=== PATIENT | female | born 1950 | race Caucasian/White ===

== ENCOUNTER → 2016-09-20 | Outpatient (CLI) | payer BC ==
--- NOTE | 2016-09-24 10:47 | MM ---
Reason for exam: screening (asymptomatic). Last mammogram was performed 2 years ago. History: Patient is postmenopausal. Breast lifts of both breasts, 1975. Physical Findings: A clinical breast exam by your physician is recommended on an annual basis and results should be correlated with mammographic findings. MG Screening Mammo w CAD Bilateral CC and MLO view(s) were taken. Prior study comparison: September 28, 2014, bilateral MG screening mammo w CAD. There is no discrete abnormality. No significant changes when compared with prior studies. ASSESSMENT: Negative, BI-RAD 1 RECOMMENDATION: Routine screening mammogram of both breasts in 1 year.
== END | disposition home or self-care (01) ==
LOC: RADMAMWWP 15:31
PROVIDERS: ATTEND Family Medicine
DX: Z12.31 Encounter for screening mammogram for malignant neoplasm of breast (principal)

== ENCOUNTER 2016-10-03 08:52 | Day surgery (SDC) | payer BC ==
[2016-10-01 14:18] VITALS: BMI 31.6
[~2016-10-03 08:52] MED LIST: LACTATED RINGERS 1,000 ML IV SCH; LIDOCAINE 1% 20 ML VIAL (10MG/ML) FOR IV START INTRADERMA PRN
[2016-10-03 09:46] VITALS: RESP 16; TEMP 98.1
[2016-10-03] MEDS ORDERED: MIDAZOLAM 2 MG/2 ML VIAL ONE (09:52)
[2016-10-03] MEDS ORDERED: PROPOFOL 10 MG/ML 20 ML VIAL IV ONE (09:52)
[2016-10-03] MEDS ORDERED: fentaNYL (PF) 50 MCG/ML 2 ML AMP ONE (09:52)
--- NOTE | 2016-10-03 10:16 | P.PCN ---
Date of Procedure: 10/03/16 Preoperative Diagnosis: Postoperative Diagnosis: Procedure(s) Performed: BRIEF HISTORY: Patient is a 66-year-old white female, scheduled for an elective colonoscopy as a part of screening for colorectal neoplasia. She does have family history of colon cancer diagnosed in her mother in her 60s. PROCEDURE PERFORMED: Colonoscopy with snare polypectomy. PREOPERATIVE DIAGNOSIS: Screening for colon cancer/family history of colon cancer. IV sedation per Anesthesia. PROCEDURE: After informed consent was obtained, the patient, was brought into the endoscopy unit. IV sedation was administered by Anesthesia under continuous monitoring. Digital rectal examination was normal. Initially the Olympus CF- 160 flexible video colonoscope was then inserted in the rectum, gradually advanced into the cecum without any difficulty. Careful examination was performed as the scope was gradually being withdrawn. Ileocecal valve and the appendiceal orifice were visualized and appeared normal. Prep was excellent. The base of the cecum there was a 1 cm polyp that was removed by snare polypectomy. Rest of the mucosa of the cecum, ascending colon appeared normal. In the proximal transverse colon there was another 1 cm polyp removed by snare polypectomy. The rest of the , transverse colon, descending colon, sigmoid colon, and rectum appeared normal. on bridging sided diverticulosis seen. Retroflexion was performed in the rectum and no lesions were seen. The patient tolerated the procedure well. IMPRESSION: 1 cm cecal polyp status post polypectomy 1 cm transverse colon polyp status post polypectomy Moderate left-sided diverticulosis RECOMMENDATIONS: Findings of this examination were discussed with the patient as well as his family her family. She was advised to follow with the biopsy results. If the biopsy shows a tubular adenoma, she can have a repeat colonoscopy in 5 years.. Implants: Indications for Procedure: Operative Findings: Description of Procedure:
[2016-10-03 10:28] VITALS: BP 120/67; PULSE 69
== END 2016-10-03 11:10 | disposition home or self-care (01) ==
LOC: ORWHC2ENDO 08:52
PROVIDERS: ATTEND Internal Medicine Gastroenterology
DX: Z12.11 Encounter for screening for malignant neoplasm of colon (principal); D12.3 Benign neoplasm of transverse colon; D12.0 Benign neoplasm of cecum; K57.30 Diverticulosis of large intestine without perforation or abscess without bleeding; Z80.0 Family history of malignant neoplasm of digestive organs; I10 Essential (primary) hypertension; E78.5 Hyperlipidemia, unspecified; Z79.899 Other long term (current) drug therapy
CPT/HCPCS: 88305; 45385; J2250; J3010; J2704

== ENCOUNTER → 2018-10-16 | Outpatient (CLI) | payer MEDICARE, OTHER ==
--- NOTE | 2018-10-21 09:52 | MM ---
Reason for exam: screening (asymptomatic). Last mammogram was performed 2 years and 1 month ago. History: Patient is postmenopausal. Breast lifts of both breasts, 1975. Physical Findings: A clinical breast exam by your physician is recommended on an annual basis and results should be correlated with mammographic findings. MG 3D Screening Mammo W/Cad Bilateral CC and MLO view(s) were taken. XCCL view(s) were taken of the left breast. Prior study comparison: September 20, 2016, bilateral MG screening mammo w CAD. September 28, 2014, bilateral MG screening mammo w CAD. The breast tissue is heterogeneously dense. This may lower the sensitivity of mammography. No significant changes when compared with prior studies. ASSESSMENT: Negative, BI-RAD 1 RECOMMENDATION: Routine screening mammogram of both breasts in 1 year.
== END | disposition home or self-care (01) ==
LOC: RADMAMWWP 15:46
PROVIDERS: ATTEND Family Medicine
DX: Z12.31 Encounter for screening mammogram for malignant neoplasm of breast (principal)
CPT/HCPCS: 77063; 77067

== ENCOUNTER → 2018-10-22 | Outpatient (CLI) | payer MEDICARE, OTHER ==
--- NOTE | 2018-10-23 06:55 | ECHOF ---
Referral Reason:R01.1 cardiac murmur MEASUREMENTS -------- HEIGHT: 170.2 cm WEIGHT: 89.4 kg BP: RVIDd: 3.0 cm (< 3.3) IVSd: 0.9 cm (0.6 - 1.1) LVIDd: 4.7 cm (3.9 - 5.3) LVPWd: 1.0 cm (0.6 - 1.1) IVSs: 1.3 cm LVIDs: 3.4 cm LVPWs: 1.3 cm LA Diam: 3.2 cm (2.7 - 3.8) LAESV Index (A-L): 14.04 ml/m Ao Diam: 3.4 cm (2.0 - 3.7) AV Cusp: 2.0 cm (1.5 - 2.6) LA Diam: 3.7 cm (2.7 - 3.8) MV EXCURSION: 23.254 mm (> 18.000) MV EF SLOPE: 81 mm/s (70 - 150) EPSS: 1.0 cm MV E Matt: 0.71 m/s MV DecT: 353 ms MV A Matt: 1.03 m/s MV E/A Ratio: 0.69 RAP: 5.00 mmHg RVSP: 17.21 mmHg FINDINGS -------- Sinus rhythm. This was a technically adequate study. LV size, wall thickness and systolic function are normal, with an EF greater than 55%. Grossly norm al LV size and systolic function. Unable to comment on regional wall motion. The left ventricular s ize is normal. The right ventricle is normal in size. The left atrial size is normal. The right atrial size is normal. There is mild aortic valve sclerosis. There is no evidence of aortic regurgitation. Mild mitral annular calcification present. Mild mitral regurgitation is present. Mild tricuspid regurgitation present. There is no evidence of pulmonary hypertension. The right v entricular systolic pressure, as measured by Doppler, is 17.21mmHg. There is no pulmonic regurgitation present. The aortic root size is normal. Echo free space represents a pericardial fat pad. CONCLUSIONS -------- 1. Sinus rhythm. 2. This was a technically adequate study. 3. LV size, wall thickness and systolic function are normal, with an EF greater than 55%. 4. Grossly normal LV size and systolic function. Unable to comment on regional wall motion. 5. The left ventricular size is normal. 6. The right ventricle is normal in size. 7. The left atrial size is normal. 8. The right atrial size is normal. 9. There is mild aortic valve sclerosis. 10. Mild mitral annular calcification present. 11. Mild mitral regurgitation is present. 12. Mild tricuspid regurgitation present. 13. There is no evidence of pulmonary hypertension. 14. The right ventricular systolic pressure, as measured by Doppler, is 17.21mmHg. 15. There is no pulmonic regurgitation present. 16. The aortic root size is normal. 17. Echo free space represents a pericardial fat pad. TRANSVERSE ABDOMINAL MUSCLE SURGEON: Pamela Silverio RDCS
== END | disposition home or self-care (01) ==
LOC: RADECHMAIN 16:05
PROVIDERS: ATTEND Family Medicine
DX: I08.1 Rheumatic disorders of both mitral and tricuspid valves (principal)
CPT/HCPCS: 93306

== ENCOUNTER 2019-03-26 14:43 | Inpatient (IN) | payer MEDICARE, OTHER ==
[2019-03-26] MEDS ORDERED: SODIUM CHLORIDE 0.9% 500 ML 500 ML IV STA (15:16)
--- NOTE | 2019-03-26 15:23 | ED ---
General Adult HPI - General Chief complaint: GI Bleed Stated complaint: Rectal Bleeding Time Seen by Provider: 03/26/19 14:45 Source: patient, RN notes reviewed, old records reviewed Mode of arrival: ambulatory Limitations: no limitations - History of Present Illness Initial comments: This is a 68-year-old female who presents emergency Department complaining that she had rectal bleeding on Saturday night and Saturday morning. Patient states it subsided on Saturday. Patient states she took some sort of laxative on Saturday night. Patient states she hasn't had any bleeding yesterday or today but she saw her primary medical care doctor Dr. Sanchez . Patient denies any diarrhea. Patient denies any fever chills per patient denies any chest pain difficult breathing shortest breath. Patient denies lightheadedness or dizziness. Patient states she has a general feeling of being weak he told to come to the emergency department. Patient states she has diffuse abdominal pain but is much better than it was yesterday. - Related Data Home Medications Medication Instructions Recorded Confirmed Albuterol Inhaler [Ventolin Hfa 1 - 2 puff INHALATION RT-QID PRN 10/01/16 03/26/19 Inhaler] Aspirin 81 mg PO HS 10/01/16 03/26/19 Benazepril [Lotensin] 10 mg PO DAILY 10/01/16 03/26/19 Multivitamins, Thera [Multivitamin 1 tab PO DAILY 08/12/18 03/26/19 (formulary)] L.acidoph,Paracasei, B.lactis 1 cap PO HS 03/26/19 03/26/19 [Probiotic] Naproxen Sodium [Aleve] 440 mg PO Q12HR PRN 03/26/19 03/26/19 Simvastatin 40 mg PO HS 03/26/19 03/26/19 diphenhydrAMINE HCL 12.5 mg PO HS PRN 03/26/19 03/26/19 Allergies Allergy/AdvReac Type Severity Reaction Status Date / Time No Known Allergies Allergy Verified 03/26/19 16:34 Review of Systems ROS Statement: Those systems with pertinent positive or pertinent negative responses have been documented in the HPI. ROS Other: All systems not noted in ROS Statement are negative. Past Medical History Past Medical History: Hyperlipidemia, Hypertension History of Any Multi-Drug Resistant Organisms: None Reported Past Surgical History: Orthopedic Surgery Additional Past Surgical History / Comment(s): L knee Past Psychological History: No Psychological Hx Reported Smoking Status: Former smoker Past Alcohol Use History: Daily, Heavy Past Drug Use History: None Reported General Exam - General Exam Comments Initial Comments: GENERAL: Patient is well-developed and well-nourished. Patient is nontoxic and well- hydrated and is in mild distress. ENT: Neck is soft and supple. No significant lymphadenopathy is noted. Oropharynx is clear. Moist mucous membranes. Neck has full range of motion without eliciting any pain. EYES: The sclera were anicteric and conjunctiva were pink and moist. Extraocular movements were intact and pupils were equal round and reactive to light. Eyelids were unremarkable. PULMONARY: Unlabored respirations. Good breath sounds bilaterally. No audible rales rhonchi or wheezing was noted. CARDIOVASCULAR: There is a regular rate and rhythm without any murmurs gallops or rubs. ABDOMEN: Soft and nontender with normal bowel sounds. SKIN: Skin is clear with no lesions or rashes and otherwise unremarkable. NEUROLOGIC: Patient is alert and oriented x3. Cranial nerves II through XII are grossly intact. Motor and sensory are also intact. Normal speech, volume and content. Symmetrical smile. MUSCULOSKELETAL: Normal extremities with adequate strength and full range of motion. No lower extremity swelling or edema. No calf tenderness. LYMPHATICS: No significant lymphadenopathy is noted PSYCHIATRIC: Normal psychiatric evaluation. Limitations: no limitations Course Vital Signs 03/26/19 14:46 Temperature 97.6 F Pulse Rate 102 H Respiratory 18 Rate Blood Pressure 144/85 O2 Sat by Pulse 96 Oximetry Medical Decision Making - Medical Decision Making I spoke with Dr. Hector and he agreed to admit the patient admitted the patient I consult to Dr. Gama. - Lab Data Result diagrams: 03/26/19 15:32 03/26/19 15:32 Lab Results 03/26/19 03/26/19 03/26/19 Range/Units 15:32 15:32 15:32 WBC 11.4 H (3.8-10.6) k/uL RBC 4.47 (3.80-5.40) m/uL Hgb 13.8 (11.4-16.0) gm/dL Hct 40.6 (34.0-46.0) % MCV 90.7 (80.0-100.0) fL MCH 30.8 (25.0-35.0) pg MCHC 33.9 (31.0-37.0) g/dL RDW 12.5 (11.5-15.5) % Plt Count 211 (150-450) k/uL Neutrophils % 80 % Lymphocytes % 10 % Monocytes % 6 % Eosinophils % 1 % Basophils % 0 % Neutrophils # 9.1 H (1.3-7.7) k/uL Lymphocytes # 1.2 (1.0-4.8) k/uL Monocytes # 0.7 (0-1.0) k/uL Eosinophils # 0.1 (0-0.7) k/uL Basophils # 0.0 (0-0.2) k/uL PT 9.8 (9.0-12.0) sec INR 0.9 (<1.2) APTT 22.9 (22.0-30.0) sec Sodium 138 (137-145) mmol/L Potassium 3.8 (3.5-5.1) mmol/L Chloride 102 (98-107) mmol/L Carbon Dioxide 25 (22-30) mmol/L Anion Gap 11 mmol/L BUN 17 (7-17) mg/dL Creatinine 0.88 (0.52-1.04) mg/dL Est GFR (CKD-EPI)AfAm 80 (>60 ml/min/1.73 sqM) Est GFR (CKD-EPI)NonAf 69 (>60 ml/min/1.73 sqM) Glucose 138 H (74-99) mg/dL Calcium 8.9 (8.4-10.2) mg/dL Magnesium 2.3 (1.6-2.3) mg/dL Total Bilirubin 0.8 (0.2-1.3) mg/dL AST 41 H (14-36) U/L ALT 49 H (4-34) U/L Alkaline Phosphatase 131 H (38-126) U/L Troponin I (0.000-0.034) ng/mL Total Protein 6.8 (6.3-8.2) g/dL Albumin 4.1 (3.5-5.0) g/dL Blood Type Blood Type Confirm Blood Type Recheck Bld Type Recheck Status Antibody Screen Spec Expiration Date 03/26/19 03/26/19 03/26/19 Range/Units 15:32 15:32 16:10 WBC (3.8-10.6) k/uL RBC (3.80-5.40) m/uL Hgb (11.4-16.0) gm/dL Hct (34.0-46.0) % MCV (80.0-100.0) fL MCH (25.0-35.0) pg MCHC (31.0-37.0) g/dL RDW (11.5-15.5) % Plt Count (150-450) k/uL Neutrophils % % Lymphocytes % % Monocytes % % Eosinophils % % Basophils % % Neutrophils # (1.3-7.7) k/uL Lymphocytes # (1.0-4.8) k/uL Monocytes # (0-1.0) k/uL Eosinophils # (0-0.7) k/uL Basophils # (0-0.2) k/uL PT (9.0-12.0) sec INR (<1.2) APTT (22.0-30.0) sec Sodium (137-145) mmol/L Potassium (3.5-5.1) mmol/L Chloride (98-107) mmol/L Carbon Dioxide (22-30) mmol/L Anion Gap mmol/L BUN (7-17) mg/dL Creatinine (0.52-1.04) mg/dL Est GFR (CKD-EPI)AfAm (>60 ml/min/1.73 sqM) Est GFR (CKD-EPI)NonAf (>60 ml/min/1.73 sqM) Glucose (74-99) mg/dL Calcium (8.4-10.2) mg/dL Magnesium (1.6-2.3) mg/dL Total Bilirubin (0.2-1.3) mg/dL AST (14-36) U/L ALT (4-34) U/L Alkaline Phosphatase (38-126) U/L Troponin I <0.012 (0.000-0.034) ng/mL Total Protein (6.3-8.2) g/dL Albumin (3.5-5.0) g/dL Blood Type A Positive Blood Type Confirm A Positive Blood Type Recheck No Previous Record Bld Type Recheck Status CABO Indicated Antibody Screen NEGATIVE Spec Expiration Date 03/29/2019 - 2331 Disposition Clinical Impression: GI bleed Disposition: ADMITTED IP TO THIS HOSP Referrals: Shahid Sanchez MD [Primary Care Provider] - 1-2 days Time of Disposition: 17:08
[2019-03-26 15:47] LABS: Basophils % (A) 0 %; Eosinophils # (A) 0.1 k/uL (0-0.7); Eosinophils % (A) 1 %; HCT 40.6 % (34.0-46.0); HGB 13.8 gm/dL (11.4-16.0); Lymphocytes # (A) 1.2 k/uL (1.0-4.8); Lymphocytes % (A) 10 %; MCH 30.8 pg (25.0-35.0); MCHC 33.9 g/dL (31.0-37.0); MCV 90.7 fL (80.0-100.0); Monocytes # (A) 0.7 k/uL (0-1.0); Monocytes % (A) 6 %; Neutrophils # (A) 9.1 k/uL (1.3-7.7); Neutrophils % (A) 80 %; Platelet Count 211 k/uL (150-450); RBC 4.47 m/uL (3.80-5.40); RDW 12.5 % (11.5-15.5); WBC 11.4 k/uL (3.8-10.6)
[2019-03-26 15:53] LABS: Albumin 4.1 g/dL (3.5-5.0); Calcium 8.9 mg/dL (8.4-10.2); Magnesium 2.3 mg/dL (1.6-2.3); Potassium 3.8 mmol/L (3.5-5.1); Total Bilirubin 0.8 mg/dL (0.2-1.3); Total Protein 6.8 g/dL (6.3-8.2)
[2019-03-26 15:58] LABS: INR 0.9 (<1.2); Partial Thromboplastin Time 22.9 sec (22.0-30.0); Prothrombin Time 9.8 sec (9.0-12.0)
[2019-03-26] MEDS: SODIUM CHLORIDE 0.9% 1,000 ML IV ONE ×2 (18:24→20:34)
[2019-03-27 03:23] LABS: Basophils % (A) 0 %; Eosinophils # (A) 0.1 k/uL (0-0.7); Eosinophils % (A) 1 %; HCT 36.3 % (34.0-46.0); HGB 12.3 gm/dL (11.4-16.0); Lymphocytes # (A) 1.1 k/uL (1.0-4.8); Lymphocytes % (A) 12 %; MCH 30.9 pg (25.0-35.0); MCHC 33.8 g/dL (31.0-37.0); MCV 91.5 fL (80.0-100.0); Mean Platelet Volume 8.3; Monocytes # (A) 0.5 k/uL (0-1.0); Monocytes % (A) 6 %; Neutrophils # (A) 7.2 k/uL (1.3-7.7); Neutrophils % (A) 77 %; Platelet Count 190 k/uL (150-450); RBC 3.96 m/uL (3.80-5.40); RDW 12.4 % (11.5-15.5); WBC 9.3 k/uL (3.8-10.6)
[2019-03-27 09:13] LABS: Basophils % (A) 0 %; Eosinophils # (A) 0.1 k/uL (0-0.7); Eosinophils % (A) 1 %; HCT 36.7 % (34.0-46.0); HGB 12.1 gm/dL (11.4-16.0); Lymphocytes % (A) 13 %; MCH 30.4 pg (25.0-35.0); Mean Platelet Volume 8.1; Monocytes # (A) 0.5 k/uL (0-1.0); Monocytes % (A) 6 %; Neutrophils # (A) 6.1 k/uL (1.3-7.7); Neutrophils % (A) 77 %; Platelet Count 198 k/uL (150-450); RBC 3.99 m/uL (3.80-5.40); RDW 12.4 % (11.5-15.5)
[2019-03-27 15:48] LABS: Basophils # (A) 0.1 k/uL (0-0.2); Basophils % (A) 1 %; Eosinophils # (A) 0.1 k/uL (0-0.7); Eosinophils % (A) 1 %; HCT 37.7 % (34.0-46.0); HGB 12.1 gm/dL (11.4-16.0); Lymphocytes # (A) 1.1 k/uL (1.0-4.8); Lymphocytes % (A) 14 %; MCH 29.8 pg (25.0-35.0); MCHC 32.1 g/dL (31.0-37.0); MCV 92.8 fL (80.0-100.0); Mean Platelet Volume 8.1; Monocytes # (A) 0.5 k/uL (0-1.0); Monocytes % (A) 6 %; Neutrophils # (A) 5.9 k/uL (1.3-7.7); Neutrophils % (A) 74 %; Platelet Count 209 k/uL (150-450); RBC 4.07 m/uL (3.80-5.40); RDW 12.4 % (11.5-15.5); WBC 7.9 k/uL (3.8-10.6)
[2019-03-27] MEDS ORDERED: PEG 3350-NA SULF,BICARB,CL/KCL 4,000 ML BOTTLE PO ONE (16:00)
--- NOTE | 2019-03-27 21:13 | HP ---
HISTORY AND PHYSICAL CHIEF COMPLAINT: Bright red rectal bleeding. HISTORY OF PRESENT ILLNESS: This is another admission for this 68-year-old white female. She came to the office stating that that morning she had been passing a large amount of bright red blood with some clots. There was no melena. She had some mild lower abdominal discomfort but no nausea, vomiting, hematemesis, etc. She does have a history of diverticulosis, apparently. She also has a history of hypertension, diabetes and COPD. REVIEW OF SYSTEMS: She has had no syncope, neurologic problems, change in the vision or the hearing, chest pain, shortness of breath, cough, hemoptysis, heart disease, angina, infarctions, palpitations, orthopnea, PND, syncope, jaundice, renal failure, dysuria, frequency, etc. She states that her urine looked bloody as well. She had no flank pain. Past medical history, family history, and personal and social histories reveal that she is NOT ALLERGIC TO ANY MEDICATION. She is on benazepril 10 mg once a day, simvastatin 80 mg once a day. She used to smoke, but she has quit. She drinks alcohol only occasionally. PHYSICAL EXAMINATION: Blood pressure 110/70. Pulse is 88, respirations 16. She is afebrile. In general she appears to be well developed, well nourished, in no acute distress. Skin color is normal. Skin is warm and dry. Lymph nodes are not enlarged. Head, ears, eyes, nose, mouth and throat are normal and neck veins are not distended. Thyroid is not enlarged. Chest is clear. Cardiac exam is normal sinus rhythm. The abdomen is slightly protuberant, soft and slightly tender in both lower quadrants. There are no masses or visceromegaly. Bowel sounds are present. Extremities are normal. Neurologically she is intact. In the office she refused any other studies than hemoglobin A1c, which was 5.9. Given her history, it was decided to be safest to send her to the emergency room for further evaluation and likely admission. IMPRESSION: 1. Lower abdominal pain with bright red rectal bleeding. 2. Chronic obstructive pulmonary disease. 3. Type 2 [id number] diabetes mellitus. PLAN: 1. Bed rest. 2. IV fluids. 3. Monitor blood loss and vital signs. 4. GI consult for lower GI endoscopy. MMODL / IJN: [id number] /
--- NOTE | 2019-03-27 21:13 | PN ---
PROGRESS NOTE DATE OF SERVICE: 03/27/2019. CHIEF COMPLAINT: Lower GI bleed. HISTORY OF PRESENT ILLNESS: This lady has been fairly stable and has not had further bleeding. Her hemoglobin is down 1 g. She has had no nausea, vomiting, chills, fever, etc. She has not been seen by GI yet. PHYSICAL EXAMINATION: Color is good. VITAL SIGNS: Normal. Chest is clear and cardiac exam is normal. Abdomen is soft and she is mildly tender in the lower half of the stomach and there are no masses. Bowel sounds are present. Extremities normal. IMPRESSION: 1. Lower abdominal pain. 2. Bright red rectal bleeding. 3. History of diverticulosis. 4. Chronic obstructive pulmonary disease. 5. Diabetes. PLAN: Continue to monitor and await GI evaluation. MMODL / IJN: [id number] /
--- NOTE | 2019-03-27 22:34 | CONS ---
CONSULTATION DATE OF DICTATION: 03/27/2019 REASON FOR CONSULTATION: Acute lower GI bleed. HISTORY OF PRESENT ILLNESS: The patient is a 68-year-old pleasant white female who came into the emergency room complaining of rectal bleeding that started 2 days ago. She states that on Saturday night she had an urge to have a bowel movement. She took some probiotics and subsequently she started noticing some blood in the stool. On Saturday and Saturday she had at least 4 or 5 episodes of bright red blood per rectum. She went to see her PCP yesterday and she was sent to the emergency room and subsequently admitted to the hospital for further evaluation. Since being here, she has not had any episodes of bleeding. Her last bloody bowel movement was on Saturday at 5 p.m. She reports no abdominal pain, reports no nausea, vomiting. She never had these symptoms in the past. She did have a colonoscopy in April of 2016 that showed colon polyps and diverticulosis. She denies any fever, chills, night sweats. PAST MEDICAL HISTORY: Her past medical history is significant for hypertension, hyperlipidemia. PAST SURGICAL HISTORY: Left knee surgery. MEDICATIONS: Medications at home include Aleve, simvastatin, diphenhydramine, probiotics, Lotensin, aspirin and albuterol. SOCIAL HISTORY: Former smoker. Heavy alcohol use. FAMILY HISTORY: Unremarkable. REVIEW OF SYSTEMS: CARDIOPULMONARY: No chest pain or shortness of breath. GENITOURINARY: No dysuria or hematuria. MUSCULOSKELETAL: Unremarkable. SKIN: Unremarkable. ENDOCRINE: Unremarkable. PSYCHIATRIC: Unremarkable. NEUROLOGY: Unremarkable. ENT/VISION: Unremarkable. CONSTITUTIONAL: No recent weight loss. No fever, chills, night sweats. PHYSICAL EXAMINATION: Appears comfortable. No apparent distress. Vital signs are stable. Blood pressure 149/79, pulse rate 76, temperature 97.9. HEENT examination unremarkable. Conjunctivae pink. Sclerae anicteric. Oral cavity no lesions. NECK: No JVD or lymph node enlargement. CHEST: Clear to auscultation. HEART: Regular rate and rhythm. ABDOMEN: Soft. Bowel sounds are positive. No organomegaly. EXTREMITIES: No pedal edema. SKIN: No rashes. NEUROLOGIC: Alert and oriented x3. No focal deficits. LABS: Labs done today show WBC 7.9, hemoglobin 12.1, platelets normal. Basic metabolic panel is within normal limits. AST and ALT are 41 and 49, respectively. Repeat hemoglobin this afternoon is 12.1. IMPRESSION: Acute lower gastrointestinal bleed. Patient had multiple episodes of bright red blood per rectum for the last few days' duration. Hemoglobin stable at 12.1 g/dL. Past colonoscopy was 3 years ago and was noted to have colon polyps. We are most likely dealing with a diverticular bleed. Other etiologies cannot be excluded. Patient hemodynamically stable. Normal hemoglobin. RECOMMENDATIONS: 1. Clear liquid diet. 2. Will proceed with a colonoscopy tomorrow. Discussed with her risks, benefits and complications of the procedure, and she is agreeable to it. Thank you for this consultation. MMODL / IJN: [id number] /
[2019-03-27] MEDS: LISINOPRIL 10 MG TAB PO SCH (22:52)
[2019-03-28] MEDS ORDERED: IV FLUID CONTINUATION 1,000 ML IV ONE (08:04)
--- NOTE | 2019-03-28 08:37 | P.PCN ---
Date of Procedure: 03/28/19 Procedure(s) Performed: BRIEF HISTORY: Patient is a 68-year-old pleasant white female admitted hospital with acute lower GI bleed. She presented with severe lower abdominal pain followed by multiple episodes of bright the back rectum for the last 2 days' duration. Hemoglobin 12 g/dL. She is scheduled for colonoscopy to evaluate further. PROCEDURE PERFORMED: Colonoscopy with biopsy. PREOPERATIVE DIAGNOSIS: Lower abdominal pain/acute lower GI bleed. IV sedation per Anesthesia. PROCEDURE: After informed consent was obtained, the patient, was brought into the endoscopy unit. IV sedation was administered by Anesthesia under continuous monitoring. Digital rectal examination was normal. Initially the Olympus CF-160 flexible video colonoscope was then inserted in the rectum, gradually advanced into the cecum without any difficulty. Careful examination was performed as the scope was gradually being withdrawn. Ileocecal valve and the appendiceal orifice were visualized and appeared normal. Prep was excellent. Mucosa of the cecum, ascending colon, transverse colon, appeared normal. There was severe segmental colitis involving the proximal sigmoid colon and the distal descending colons descending from 30-50 cm from the anal verge with mucosal erythema, friability, severe congestion with bluish discoloration consistent with ischemic colitis and biopsies were done from this area. The rest of the sigmoid colon, and rectum appeared normal. Retroflexion was performed in the rectum and no lesions were seen. The patient tolerated the procedure well. IMPRESSION: 1.Severe segmental colitis involving the proximal sigmoid and distal descending colon at 70 from 30-50 cm from the anal verge with mucosal erythema friability, congested appearing mucosa and some bluish discoloration consistent with severe ischemic colitis 2.Scattered sigmoid diverticulosis 3.No evidence of colorectal neoplasia RECOMMENDATIONS: Findings of this examination were discussed with the patient. At this time because of the severe ischemic colitis will monitor her closely in the hospital for 2 more days. Keep her on clear liquid diet for today and tomorrow if she is feeling better and advance to a soft diet. Monitor CBC on a daily basis..
[2019-03-28] MEDS ORDERED: PROPOFOL 10 MG/ML 20 ML VIAL IV ONE (08:40)
[2019-03-28] MEDS: LISINOPRIL 10 MG TAB PO SCH (09:38)
--- NOTE | 2019-03-28 16:14 | PN ---
PROGRESS NOTE CHIEF COMPLAINT: Lower GI bleed. HISTORY OF PRESENT ILLNESS: This lady is doing well and feeling well. She is still having some mild lower abdominal discomfort but no bleeding. She is found to have extensive colitis at her colonoscopy this morning and GI suggests that it is ischemic. They wanted to keep her in the hospital to monitor her for another day or two. PHYSICAL EXAMINATION: Color is good and chest is clear. Cardiac exam is normal. The abdomen is soft and nontender. IMPRESSION: Ischemic colitis and lower GI bleed. PLAN: GI wants to keep her in the hospital for several more days. MMODL / IJN: [id number] /
[2019-03-29] MEDS: LISINOPRIL 10 MG TAB PO SCH (08:30)
--- NOTE | 2019-03-29 09:06 | PN ---
PROGRESS NOTE DATE OF DICTATION: March 29, 2019 Patient is a 68-year-old pleasant white female admitted to hospital with acute onset of lower abdominal pain followed by bloody rectal bleeding of 2 days duration. She had a colonoscopy done yesterday that revealed severe segmental colitis involving the descending colon and sigmoid colon consistent with severe ischemic colitis. Following the procedure, the patient was kept on a clear liquid diet and today she is feeling better. She still has some abdominal pain, but has improved significantly. No further episodes of bleeding. PHYSICAL EXAMINATION: Blood pressure 142/72, pulse rate 56, temperature 97.9. HEENT examination unremarkable. Conjunctivae pink. Sclerae anicteric. Oral cavity no lesions. NECK: No JVD or lymph node enlargement. CHEST: Clear to auscultation. HEART: Regular rate and rhythm. ABDOMEN: Soft. Bowel sounds are positive. There is mild tenderness in the left upper quadrant and left lower quadrant area. EXTREMITIES: No pedal edema. SKIN no rashes. NEUROLOGIC: Alert and oriented x3. No focal deficits. LABS: From today are still pending. IMPRESSION: Acute severe segmental colitis involving the proximal sigmoid and distal descending colon consistent with acute ischemic colitis. Colonoscopy done yesterday shows severe colitis. The patient is gradually improving but still has some abdominal pain. On clear liquid diet, tolerating well. RECOMMENDATIONS: 1. Await labs from today. 2. Advance to full liquid diet. 3. If she continues to improve, she can be started on a low-fiber diet tomorrow and discharged home tomorrow with outpatient followup in 2 weeks. Thank you for this consultation. MMODL / IJN: [id number] /
[2019-03-29 09:56] LABS: Basophils # (A) 0.1 k/uL (0-0.2); Basophils % (A) 1 %; Eosinophils # (A) 0.1 k/uL (0-0.7); Eosinophils % (A) 2 %; HCT 37.4 % (34.0-46.0); HGB 12.5 gm/dL (11.4-16.0); Lymphocytes # (A) 0.9 k/uL (1.0-4.8); Lymphocytes % (A) 16 %; MCH 30.6 pg (25.0-35.0); MCHC 33.4 g/dL (31.0-37.0); MCV 91.8 fL (80.0-100.0); Mean Platelet Volume 8.1; Monocytes # (A) 0.4 k/uL (0-1.0); Monocytes % (A) 6 %; Neutrophils # (A) 4.1 k/uL (1.3-7.7); Neutrophils % (A) 72 %; Platelet Count 253 k/uL (150-450); RBC 4.07 m/uL (3.80-5.40); RDW 12.4 % (11.5-15.5); WBC 5.6 k/uL (3.8-10.6)
--- NOTE | 2019-03-29 13:36 | PN ---
PROGRESS NOTE CHIEF COMPLAINT: Lower gastrointestinal bleed. HISTORY OF PRESENT ILLNESS: This lady is doing well. She is comfortable, not having any bleeding, pain, etc. Gastroenterology is holding her in for another day. PHYSICAL EXAMINATION: Chest is clear and cardiac exam is normal. Abdomen is soft, nontender. IMPRESSION: Lower gastrointestinal bleed secondary to ischemic colitis. PLAN: Probably home tomorrow. MMODL / IJN: [id number] /
[2019-03-29 20:53] VITALS: RESP 16
[2019-03-30] MEDS: LISINOPRIL 10 MG TAB PO SCH (08:29)
--- NOTE | 2019-03-30 12:14 | DS ---
DISCHARGE SUMMARY CHIEF COMPLAINT: Bright red rectal bleeding. HISTORY OF PRESENT ILLNESS AND PHYSICAL EXAM: Details of this lady's history and physical can be found in the initial workup. LABORATORY STUDIES: While she was in a hospital she had laboratory studies, details of which can be found in the laboratory section of her chart. COURSE IN THE HOSPITAL: After admission, she was placed on bedrest, started on intravenous fluids and seen by Gastroenterology. She was subsequently taken to the operating room after her bleeding had stopped and she was found to have extensive ischemic colitis from the transverse colon down to the rectum in patchy distribution. She had no further bleeding. She is doing well. She had no pain, fever, chills, etc. and it was felt that she could go home and she will go home on her usual activity and diet and be seen in the office in several days. FINAL DIAGNOSES: 1. Bright red rectal bleeding. 2. Ischemic hemorrhagic colitis. OPERATIONS: Endoscopy. CONSULTATIONS: Gastroenterology. She is improved. MMODL / IJN: [id number] /
[2019-03-30 15:07] VITALS: BP 120/68; PULSE 74; TEMP 98.5
== END 2019-03-30 12:59 | disposition home or self-care (01) | DRG 393 ==
LOC: EC 14:43 → 6NMEDSUR 17:11 → OBSVTOIN 03-28 09:05
PROVIDERS: ADMIT Family Medicine; ATTEND Family Medicine
PROC: 0DBM8ZX Excision of Descending Colon, Via Natural or Artificial Opening Endoscopic, Diagnostic (ICD-10-PCS; principal; 2019-03-28 08:15)
PROC: 0DBN8ZX Excision of Sigmoid Colon, Via Natural or Artificial Opening Endoscopic, Diagnostic (ICD-10-PCS; principal; 2019-03-28 08:15)
DX: K55.031 Focal (segmental) acute (reversible) ischemia of large intestine (principal); K57.31 Diverticulosis of large intestine without perforation or abscess with bleeding; J44.9 Chronic obstructive pulmonary disease, unspecified; E11.9 Type 2 diabetes mellitus without complications; E78.5 Hyperlipidemia, unspecified; I10 Essential (primary) hypertension; Z86.010 Personal history of colon polyps; Z87.891 Personal history of nicotine dependence; Z79.84 Long term (current) use of oral hypoglycemic drugs; Z79.82 Long term (current) use of aspirin
CPT/HCPCS: 36415; 45380; 80053; 83735; 84484; 85025; 85610; 85730; 86850; 86900; 86901; 88305; 96360; 96361; 99284

== ENCOUNTER → 2022-01-19 | Outpatient (CLI) | payer MEDICARE ==
--- NOTE | 2022-01-22 08:53 | MM ---
Reason for Exam: Screening (asymptomatic). Last mammogram was performed 3 year(s) and 4 month(s) ago. Patient History: Menarche at age 13. First Full-Term at age 19. Postmenopausal. Risk Values: Lennie 5 year model risk: 1.4%. NCI Lifetime model risk: 4.2%. Prior Study Comparison: 09/28/2014 Bilateral Screening Mammogram, [facility]. 09/20/2016 Bilateral Screening Mammogram, [facility]. 10/16/2018 Bilateral Screening Mammogram, [facility]. Tissue Density: The breast tissue is heterogeneously dense. This may lower the sensitivity of mammography. Findings: Analyzed By CAD. Scattered benign-appearing calcifications. There is no suspicious group of microcalcifications or new suspicious mass in either breast. Overall Assessment: Benign, BI-RAD 2 Management: Screening Mammogram of both breasts in 1 year. A clinical breast exam by your physician is recommended on an annual basis and results should be correlated with mammographic findings. [facility] will attempt to contact patient to return for supplemental views and ultrasound if indicated. Electronically signed and approved by: Vivek Najera DO
== END | disposition home or self-care (01) ==
LOC: RADMAMWWP 16:20
PROVIDERS: ATTEND Family Medicine
DX: Z12.31 Encounter for screening mammogram for malignant neoplasm of breast (principal); Z78.0 Asymptomatic menopausal state
CPT/HCPCS: 77063; 77067

== ENCOUNTER → 2023-02-20 | Outpatient (CLI) | payer MEDICARE ==
--- NOTE | 2023-02-22 15:23 | MM ---
Reason for Exam: Screening (asymptomatic). Last mammogram was performed 1 year(s) and 1 month(s) ago. Patient History: Menarche at age 13. First Full-Term at age 19. Postmenopausal. Risk Values: Lennie 5 year model risk: 1.4%. NCI Lifetime model risk: 4.0%. Prior Study Comparison: 09/20/2016 Bilateral Screening Mammogram, [facility]. 10/16/2018 Bilateral Screening Mammogram, [facility]. 01/19/2022 Bilateral MG 3D screening mammo w/cad, [facility]. Tissue Density: The breast tissue is extremely dense which could obscure a lesion on mammography. Findings: Analyzed By CAD. Pattern appears symmetrical and stable. Scattered benign calcifications are present. No significant interval changes are evident No suspicious groups of microcalcifications, spiculated or lobular masses, architectural distortion or other secondary signs of malignancy are mammographically apparent. Overall Assessment: Benign, BI-RAD 2 Management: Screening Mammogram of both breasts in 1 year. A negative mammogram report should not preclude additional follow up of suspicious palpable abnormalities. Patient should continue monthly self breast exam. A clinical breast exam by your physician is recommended on an annual basis and results should be correlated with mammographic findings. Electronically signed and approved by: Albert Vaughn D.O. Radiologis
== END | disposition home or self-care (01) ==
LOC: RADMAMWWP 12:50
PROVIDERS: ATTEND Family Medicine
DX: Z12.31 Encounter for screening mammogram for malignant neoplasm of breast (principal); Z78.0 Asymptomatic menopausal state
CPT/HCPCS: 77063; 77067

== ENCOUNTER 2023-05-15 08:49 | Day surgery (SDC) | payer MEDICARE ==
[~2023-05-15 08:49] MED LIST changes: -LACTATED RINGERS 1,000 ML IV SCH; +LIDOCAINE 1% (10MG/ML) FOR IV START INTRADERMA PRN; -LIDOCAINE 1% 20 ML VIAL (10MG/ML) FOR IV START INTRADERMA PRN; +MIDAZOLAM 2 MG/2 ML VIAL IV PRN
[2023-05-15] MEDS: LACTATED RINGERS 1,000 ML IV SCH (09:12)
[2023-05-15] MEDS: DEXAMETHASONE SOD PHOSPHATE 4 MG/ML 1 ML VIAL IV ONE (09:24)
[2023-05-15] MEDS: FAMOTIDINE 20 MG/2 ML VIAL IV PRN (09:24)
[2023-05-15] MEDS: ONDANSETRON 4 MG/2 ML VIAL IVP ONE (09:24)
[2023-05-15 09:32] LABS: Glucose,Whole Blood 139 mg/dL (70-110)
[2023-05-15] MEDS ORDERED: SUGAMMADEX SODIUM 200 MG/2 ML SDV IV ONE (10:10)
[2023-05-15] MEDS ORDERED: fentaNYL (PF) 50 MCG/ML 2 ML AMP ONE (10:10)
[2023-05-15] MEDS ORDERED: MIDAZOLAM 2 MG/2 ML VIAL ONE (10:10)
[2023-05-15] MEDS ORDERED: PROPOFOL 10 MG/ML 20 ML VIAL IV ONE (10:10)
[2023-05-15] MEDS ORDERED: GLYCOPYRROLATE 0.2 MG/ML 2 ML VIAL ONE (10:10)
[2023-05-15] MEDS ORDERED: ROCURONIUM 10 MG/ML (5 ML VIAL) IV ONE (10:10)
[2023-05-15] MEDS ORDERED: LABETALOL 5 MG/ML VIAL MDV ONE (10:10)
[2023-05-15] MEDS ORDERED: LIDOCAINE 1% INJ 10MG/ML (20 ML MDV) ONE (10:10)
[2023-05-15] MEDS ORDERED: DEXAMETHASONE SOD PHOSPHATE 10 MG/ML 1 ML VIAL ONE (10:10)
[2023-05-15] MEDS ORDERED: SUCCINYLCHOLINE CHLORIDE 200 MG/10 ML VIAL IV ONE (10:10)
[2023-05-15] MEDS ORDERED: NEOSTIGMINE 1 MG/ML 10 ML VIAL ONE (10:10)
[2023-05-15] MEDS: SILVER NITRATE APPLICATOR 1 EACH STICK..EA. TOPICAL ONE (10:47)
[2023-05-15] MEDS: LACTATED RINGERS 1,000 ML IV ONE (10:50)
--- NOTE | 2023-05-15 10:54 | P.OP ---
Date of Procedure: 05/15/23 Preoperative Diagnosis: base of tongue cyst Right oropharynx lesion Postoperative Diagnosis: Same Procedure(s) Performed: Microlaryngoscopy with excision base of tongue lesion Direct pharyngoscopy with excision right oropharynx lesion Anesthesia: ROCÍOA Surgeon: Gavin Peña Estimated Blood Loss (ml): 3 Pathology: other (Base of tongue and oropharynx lesions) Condition: stable Disposition: PACU Indications for Procedure: This 72-year-old white female whose had globus type sensation. She was noted to have a base of tongue cystic lesion as well as incidentally a right oropharynx lesion Operative Findings: Right oropharynx lesion which appeared cystic at the superior aspect of the right tonsil approximate 4 mm with white submucosally hue-had white caseous debris within this removed grossly entirely, small approximate 5 mm cystic lesion smooth rounded midline base of tongue Description of Procedure: The patient was brought in the operative suite and placed in a supine position. Patient underwent induction of general anesthesia with oral endotracheal intubation without difficulty. The patient was prepped and draped in usual aseptic fashion. Gum guard was placed and direct laryngoscopy was performed with systematic evaluation of the base of tongue vallecula both piriform sinuses post cricoid area and endolarynx. With the base of tongue in good visualization the laryngoscope was placed in suspension and the Zeiss microscope was brought into position for visualization. The cystic lesion was then excised grossly entirely with microcup forceps and microscissors. Hemostasis gained with silver nitrate. Good hemostasis was noted. Laryngoscope was then withdrawn. The McIvor mouth gag was then placed with good visualization of the oropharynx. The right oropharynx/right superior tonsillar lesion was excised grossly entirely with needlepoint electrocautery and the base was then cauterized with suction cautery to obtain hemostasis. Excellent hemostasis was noted and remained good in both sides. The patient was suctioned in oral gastric fashion. Patient was allowed to emerge from general anesthesia having tolerated procedure well was extubated in the operating suite and transferred postoperative recovery area in satisfactory condition.
[2023-05-15 11:17] LABS: Glucose,Whole Blood 143 mg/dL (70-110)
[2023-05-15 11:33] VITALS: TEMP 97.3
[2023-05-15] MEDS: HYDROmorphone 0.5 MG/0.5 ML SYRINGE IVP PRN (11:51)
[2023-05-15] MEDS: hydrALAZINE HCL 20 MG/ML 1 ML VIAL IVP ONE (12:09)
[2023-05-15 12:48] VITALS: RESP 16
[2023-05-15 14:01] VITALS: BP 137/68; PULSE 77
== END 2023-05-15 13:24 | disposition home or self-care (01) ==
LOC: OR 08:49
PROVIDERS: ATTEND Otolaryngology
DX: K13.79 Other lesions of oral mucosa (principal); D37.05 Neoplasm of uncertain behavior of pharynx
CPT/HCPCS: 41110; 88305; J2250; J0330; J0360; J1100 ×2; J2710; J0690; J2405; J2001; J3010; J3490; J2704; J1170; J1920

== ENCOUNTER → 2024-03-06 | Outpatient (CLI) | payer MEDICARE ==
--- NOTE | 2024-03-06 08:21 | BD ---
EXAMINATION TYPE: Axial Bone Density DATE OF EXAM: 03/06/2024 CLINICAL HISTORY: 73 years old Female. ICD-10 CODE: M81.0 OSTEOPOROSIS , Additional History: Height: 66 Weight: 190.6 FRAX RISK QUESTIONS: Alcohol (3 or more units per day): yes Family History (Parent hip fracture): no Glucocorticoids (More than 3mos): no (Ex: prednisone, prednisolone, methylprednisolone, dexamethasone, and hydrocortisone). History of Fracture in Adulthood: no Secondary Osteoporosis: 1. Type 1 Diabetes: no 2. Hyperthyroidism: no 3. Menopause before 45: yes 4. Malnutrition: no 5. Chronic liver disease: no Rheumatoid Arthritis: no Current Tobacco Use: no RISK FACTORS HISTORY OF: Surgery to Spine/Hip(right/left)/Wrist (right/left): left hip replaced When: 2019 EXAM MEASUREMENTS: Bone mineral densitometry was performed using the [employer] System. Bone mineral density as measured about the Lumbar spine is: ----- L1-L4(G/cm2): 1.370 T Score Values are as follows: ----- L1: -0.4 ----- L2: 0.3 ----- L3: 1.8 ----- L4: 3.9 ----- L1-L4: 1.6 Z Score Values are as follows: ----- L1: 0.6 ----- L2: 1.3 ----- L3: 2.7 ----- L4: 4.8 ----- L1-L4: 2.6 Bone mineral density has: increased 12.7 % since study of: 12.29.2007 Bone mineral density about the R hip (g/cm2): 0.963 T Score values are as follows: -----R Neck: -1.8 -----R Total: -0.4 Z Score values are as follows: -----R Neck: -0.5 -----R Total: 0.7 Bone mineral density has: decreased -0.7 % since study of: 12.29.2007 FRAX%s: The graph provided illustrates a 13.6% chance for a major osteoporotic fx and a 3.2% chance f or the hips probability for fx in 10 years time. IMPRESSION: Osteopenia (T Score between -2.5 and -1) at the femoral neck level in the hip. There is slightly increased risk of fracture and the patient may be considered for treatment. Re-Screen 2-5 years. NOTE: T-SCORE=SD OF THE YOUNG ADULT MEAN. [facility], , 03/06/2024 8:19 AM
--- NOTE | 2024-03-06 08:31 | MM ---
Reason for Exam: Screening (asymptomatic). Last screening mammogram was performed 12 month(s) ago. Patient History: Menarche at age 13. First Full-Term at age 19. Postmenopausal. Risk Values: Lennie 5 year model risk: 1.4%. NCI Lifetime model risk: 3.8%. Prior Study Comparison: 10/16/2018 Bilateral Screening Mammogram, [facility]. 01/19/2022 Bilateral MG 3D screening mammo w/cad, [facility]. 02/20/2023 Bilateral MG 3D screening mammo w/cad, [facility]. Tissue Density: The breasts are heterogeneously dense, which may obscure small masses. Findings: Analyzed By CAD. There are tiny calcifications regionally in the bilateral breasts redemonstrated. Benign right axillary lymph node is again seen. There is no suspicious group of microcalcifications or new suspicious mass in either breast. Overall Assessment: Benign, BI-RAD 2 Management: Screening Mammogram of both breasts in 1 year. Some advise bilateral breast ultrasound surveillance in patients with background dense tissue. Patient should continue monthly self-breast exams. A clinical breast exam by your physician is recommended on an annual basis. This exam should not preclude additional follow-up of suspicious palpable abnormalities. Note on Lennie scores and lifetime risk: 1. A Lennie score greater than 3% is considered moderate risk. If this is the case, consider specialist referral to assess eligibility for a risk reducing agent. 2. If overall lifetime risk for the development of breast cancer is 20% or higher, the patient may qualify for future screening with alternating mammogram and breast MRI. [facility], , 03/06/2024 7:50 AM. Electronically signed and approved by: Chase Silva M.D.
--- NOTE | 2024-03-06 13:30 | CA ---
Exercise Stress Test Report Name: Micaela Gruber Exam Date: 03/06/2024 09:26 Exam Location: [place] Stress Ht (in): 66 Wt (lb): 190 BSA: 1.96 Ordering Phys: Shahid Sanchez MD Referring Phys: Shahid Sanchez MD Technologist: Reji Ansari Age: 73 Gender: F : 1950 Procedure CPT: Indications: I35.8 aortic valve disorder ICD-10 Codes: Patient History: Medications: Meds past 24 hrs: Pretest Chest Pain: STRESS TEST Rey Protocol Exercise Duration (min:sec): 02:[address] Depressions (mm): Angina Score: Zamora Score: Resting HR (bpm): 64 Peak HR (bpm): 151 Resting BP (mmHg): 189 / 69 Peak BP (mmHg): 219 / 97 MPHR: 149 Target HR: 127 % MPHR: 101 METS: 4.7 Total Dose: Peak Dose: Atropine: Double Product: 25591 BP Response: Stress Termination: Reached target heart rate Stress Symptoms: Dyspnea, WHEEZING Stress Summary: The patient's target heart rate was achieved, The hemodynamic response to exercise was normal ECG ANALYSIS Resting ECG: Sinus rhythm. Normal conduction. No arrhythmias. Normal repolarization. Stress ECG: Half millimeter to [address] segment depression. CONCLUSIONS 1. Poor exercise tolerance 2. Occasional PVCs with couplets 3. Half millimeter to [address] segment depression at peak exercise that resolved in recovery. If clinically indicated and imaging stress test will be helpful. Dr. Catherine Cardoza MD (Electronically Signed) Final Date: 06 March 2024 13:29
--- NOTE | 2024-03-06 18:07 | CA ---
Transthoracic Echo Report Name: Micaela Gruber Age: 73 Gender: F : 1950 Exam Date: 03/06/2024 08:20 Exam Location: [place] [facility] Ht (in): 66 Wt (lb): 190 Ordering Physician: Shahid Sanchez MD Attending/Referring Phys: Shahid Sanchez MD Primary Care Coordinator Carla Sam, [facility] Procedure CPT: Indications: I35.8 aortic valve disorder Cardiac Hx: Technical Quality: Good Contrast 1: Total Dose (mL): Contrast 2: Total Dose (mL): MEASUREMENTS (Male / Female) Normal Values 2D ECHO LV Diastolic Diameter PLAX 5.5 cm 4.2 - 5.9 / 3.9 - 5.3 cm LV Systolic Diameter PLAX 3.6 cm IVS Diastolic Thickness 0.8 cm 0.6 - 1.0 / 0.6 - 0.9 cm LVPW Diastolic Thickness 0.7 cm 0.6 - 1.0 / 0.6 - 0.9 cm LV Relative Wall Thickness 0.3 RV Internal Dim ED PLAX 3.1 cm LVOT Diameter 2.0 cm Aortic Root Diameter 0.1 cm LA Systolic Diameter LX 4.1 cm 3.0 - 4.0 / 2.7 - 3.8 cm LV Diastolic Volume MOD BP 139.3 cm??? 67 - 155 / 56 - 104 cm??? LV Systolic Volume MOD BP 54.3 cm??? 22 - 58 / 19 - 49 cm??? LV Ejection Fraction MOD BP 61.0 % >= 55 % LV Cardiac Index MOD BP 2679.0 cm???/min???m??? LV Diastolic Volume MOD 4C 132.0 cm??? LV Systolic Volume MOD 4C 53.3 cm??? LV Ejection Fraction MOD 4C 59.6 % LV Cardiac Index MOD 4C 2479.5 cm???/min???m??? LV Diastolic Length 4C 8.7 cm LV Systolic Length 4C 7.6 cm LV Diastolic Volume MOD 2C 135.4 cm??? LV Systolic Volume MOD 2C 54.2 cm??? LV Ejection Fraction MOD 2C 59.9 % LV Cardiac Index MOD 2C 2557.6 cm???/min???m??? LV Diastolic Length 2C 8.0 cm LV Systolic Length 2C 7.4 cm DOPPLER LVOT Peak Velocity 126.9 cm/s LVOT Peak Gradient 6.4 mmHg LVOT Velocity Time Integral 31.4 cm LVOT Stroke Volume 95.8 cm??? LVOT Stroke Volume Index 48.9 ml/m??? LVOT Cardiac Index 3019.5 cm???/min???m??? MV Area PHT 4.0 cm??? Mitral E Point Velocity 65.4 cm/s Mitral A Point Velocity 80.3 cm/s Mitral E to A Ratio 0.8 MV Deceleration Time 191.3 ms TR Peak Velocity 252.1 cm/s TR Peak Gradient 25.4 mmHg Right Atrial Pressure 5.0 mmHg Pulmonary Artery Systolic Pressu 30.4 mmHg Right Ventricular Systolic Press 30.4 mmHg FINDINGS Left Ventricle Left ventricular ejection fraction is estimated at 55 to 60 %. Normal left ventricular systolic function with no obvious regional wall motion abnormalities. Left ventricular cavity size normal. Right Ventricle Normal right ventricular size and function. Right ventricular systolic pressure within normal limits. Right Atrium Normal right atrial size. Left Atrium Mildly increased left atrial diameter. Mitral Valve Structurally normal mitral valve. No evidence for mitral valve prolapse. No mitral stenosis. mild mitral regurgitation. Aortic Valve Trileaflet aortic valve.No aortic valve stenosis or regurgitation. Tricuspid Valve Structurally normal tricuspid valve. No tricuspid stenosis. Mild tricuspid regurgitation. Pulmonic Valve Pulmonic valve not well visualized. No pulmonic stenosis. No pulmonic regurgitation. Pericardium No pericardial effusion. Aorta Aortic annulus normal. Ascending Aorta was not visualized. CONCLUSIONS Technically difficult study. Normal left ventricular size and systolic function Limited Doppler study with mild mitral and tricuspid regurgitation Previewed by: Dr. Catherine Cardoza MD (Electronically Signed) Final Date: 06 March 2024 18:06
== END | disposition home or self-care (01) ==
LOC: RADMAMWWP 07:19
PROVIDERS: ATTEND Family Medicine
DX: Z12.31 Encounter for screening mammogram for malignant neoplasm of breast (principal); I35.8 Other nonrheumatic aortic valve disorders; M81.0 Age-related osteoporosis without current pathological fracture; Z78.0 Asymptomatic menopausal state; R92.333 Mammographic heterogeneous density, bilateral breasts; M85.89 Other specified disorders of bone density and structure, multiple sites
CPT/HCPCS: 77063; 77067; 77080; 93017; 93306